=== PATIENT | male | born 1955 | race Caucasian/White ===

== ENCOUNTER 2019-09-13 12:40 | Emergency (ER) | payer MEDICARE, OTHER ==
--- NOTE | 2019-09-13 13:34 | EDM.PDOC ---
ED HPI GENERAL MEDICAL PROBLEM - General Chief Complaint: Respiratory Problem Stated Complaint: CHF Time Seen by Provider: 09/13/19 13:10 Source of Information: Reports: Patient History Limitations: Reports: No Limitations - History of Present Illness INITIAL COMMENTS - FREE TEXT/NARRATIVE: Patient is a 64 YO WM who presented to the ED because of left sided chest pain radiating to the left shoulder and left rib cage area. The pain is sharp 7/10 denies any dyspnea,nausea,vomiting, or diaphoresis. He has a h/o COPD and is on home oxygen ad inhalers. Left back/chest Pain Score (Numeric/FACES): 8 - Related Data Allergies Allergy/AdvReac Type Severity Reaction Status Date / Time No Known Allergies Allergy Verified 09/13/19 13:30 Home Meds: Home Meds Albuterol [Proventil HFA] 1 - 2 puff INH Q4H PRN 09/13/19 [History] Aspirin 81 mg PO DAILY 09/13/19 [History] Azithromycin [Zithromax] 250 mg PO DAILY #6 tab 09/13/19 [Rx] Carvedilol 6.25 mg PO BID 09/13/19 [History] Cinnamon Bark [Cinnamon] 500 mg PO DAILY 09/13/19 [History] Clobetasol [Clobetasol Propionate 0.05%] 1 applic TOP TID 09/13/19 [History] Clopidogrel [Plavix] 75 mg PO DAILY 09/13/19 [History] Folic Acid 1 mg PO DAILY 09/13/19 [History] Furosemide 40 mg PO DAILY 09/13/19 [History] Ibuprofen 400 mg PO Q4H PRN 09/13/19 [History] Lisinopril 5 mg PO DAILY 09/13/19 [History] Methotrexate Sodium/PF [Methotrexate 25 mg/ml Vial] 0.6 ml SQ WE 09/13/19 [ History] Multivitamin [Daily Multiple Vitamin] 1 tab PO DAILY 09/13/19 [History] Naproxen 250 mg PO ASDIRECTED PRN 09/13/19 [History] Sertraline [Zoloft] 100 mg PO DAILY 09/13/19 [History] Simvastatin [Zocor] 40 mg PO DAILY 09/13/19 [History] Umeclidinium Brm/Vilanterol Tr [Anoro Ellipta 62.5-25 MCG] 1 each IH DAILY 09/13 [History] amLODIPine [Norvasc] 5 mg PO DAILY 09/13/19 [History] oxyCODONE HCl/Acetaminophen [Oxycodone-Acetaminophen 5-325] 1 tab PO Q4H PRN 02/26 [History] predniSONE [Prednisone] 40 mg PO DAILY #10 tablet 09/13/19 [Rx] ED ROS GENERAL - Review of Systems Review Of Systems: See Below Constitutional: Reports: No Symptoms HEENT: Reports: No Symptoms Respiratory: Reports: Shortness of Breath, Pleuritic Chest Pain, Cough Cardiovascular: Reports: Chest Pain. Denies: Dyspnea on Exertion, Palpitations Endocrine: Reports: No Symptoms GI/Abdominal: Reports: No Symptoms, Abdominal Pain : Reports: No Symptoms Musculoskeletal: Reports: No Symptoms Skin: Reports: No Symptoms Neurological: Reports: No Symptoms Psychiatric: Reports: No Symptoms ED EXAM, GENERAL - Physical Exam Exam: See Below Exam Limited By: Combative/Threatening General Appearance: No Apparent Distress Ears: Normal External Exam, Normal Canal, Hearing Grossly Normal Nose: Normal Inspection, Normal Mucosa, No Blood Throat/Mouth: Normal Inspection, Normal Lips, Normal Teeth Head: Atraumatic, Normocephalic Neck: Normal Inspection, Supple, Non-Tender Respiratory/Chest: No Respiratory Distress, Lungs Clear, Normal Breath Sounds, No Accessory Muscle Use, Chest Non-Tender Cardiovascular: Normal Peripheral Pulses, Regular Rate, Rhythm, No Edema, No Gallop, No JVD, No Murmur, No Rub Extremities: Normal Inspection, Normal Range of Motion, Non-Tender Neurological: Oriented, CN II-XII Intact, Normal Cognition Psychiatric: Normal Affect, Normal Mood Skin Exam: Warm Course - Vital Signs Text/Narrative:: labs and EKG,CXR-reviewed with the patient EKG-NSR,bigeminy CXR-neg trop-0.076,0.078 bnp duoneb,prednisone 40 mg po x1,toradol 60 mg IM x1 with significant improvement of his breathing and pleuritic pain Last Recorded V/S: Last Vital Signs Temp 36.6 C 09/13/19 14:31 Pulse 67 09/13/19 14:31 Resp 20 09/13/19 14:31 BP 141/98 H 09/13/19 14:31 Pulse Ox 90 L 09/13/19 14:31 - Orders/Labs/Meds Orders: Active Orders 24 hr Category Date Time Status EKG Documentation Completion [RC] ASDIRECTED Care 09/13/19 13:03 Active RT Aerosol Therapy [RC] ASDIRECTED Care 09/13/19 13:48 Active EKG 12 Lead [EK] Routine Ther 09/13/19 13:02 Ordered Labs: Laboratory Tests 09/13/19 09/13/19 09/13/19 Range/Units 13:10 13:10 13:10 WBC 10.1 (4.5-12.0) X10-3/uL RBC 5.29 (4.30-5.75) x10(6)uL Hgb 16.4 (13.5-17.8) g/dL Hct 49.5 (30.0-51.3) % MCV 93.6 (80-96) fL MCH 31.1 (27.7-33.6) pg MCHC 33.2 (32.2-35.4) g/dL RDW 15.6 H (11.5-15.5) % Plt Count 174 (125-369) X10(3)uL MPV 8.0 (7.4-10.4) fL Neut % (Auto) 73.6 (46-82) % Lymph % (Auto) 13.3 (13-37) % [place] % (Auto) 8.2 (4-12) % Eos % (Auto) 1 (1.0-5.0) % Baso % (Auto) 4 H (0-2) % Neut # (Auto) 7.5 (1.6-8.3) # Lymph # (Auto) 1.3 (0.6-5.0) # [place] # (Auto) 0.8 (0.0-1.3) # Eos # (Auto) 0.1 (0.0-0.8) # Baso # (Auto) 0.4 H (0.0-0.2) # Sodium 139 (135-145) mmol/L Potassium 3.9 (3.5-5.3) mmol/L Chloride 104 (100-110) mmol/L Carbon Dioxide 26 (21-32) mmol/L BUN 10 (7-18) mg/dL Creatinine 0.8 (0.70-1.30) mg/dL Est Cr Clr Drug Dosing TNP Estimated GFR (MDRD) > 60 (>60) BUN/Creatinine Ratio 12.5 (9-20) Glucose 131 H (80-116) mg/dL Calcium 8.3 L (8.6-10.2) mg/dL Troponin I 0.076 H* (<0.017-0.056) ng/mL 09/13/19 Range/Units 15:20 WBC (4.5-12.0) X10-3/uL RBC (4.30-5.75) x10(6)uL Hgb (13.5-17.8) g/dL Hct (30.0-51.3) % MCV (80-96) fL MCH (27.7-33.6) pg MCHC (32.2-35.4) g/dL RDW (11.5-15.5) % Plt Count (125-369) X10(3)uL MPV (7.4-10.4) fL Neut % (Auto) (46-82) % Lymph % (Auto) (13-37) % [place] % (Auto) (4-12) % Eos % (Auto) (1.0-5.0) % Baso % (Auto) (0-2) % Neut # (Auto) (1.6-8.3) # Lymph # (Auto) (0.6-5.0) # [place] # (Auto) (0.0-1.3) # Eos # (Auto) (0.0-0.8) # Baso # (Auto) (0.0-0.2) # Sodium (135-145) mmol/L Potassium (3.5-5.3) mmol/L Chloride (100-110) mmol/L Carbon Dioxide (21-32) mmol/L BUN (7-18) mg/dL Creatinine (0.70-1.30) mg/dL Est Cr Clr Drug Dosing Estimated GFR (MDRD) (>60) BUN/Creatinine Ratio (9-20) Glucose (80-116) mg/dL Calcium (8.6-10.2) mg/dL Troponin I 0.078 H* (<0.017-0.056) ng/mL Meds: Medications Discontinued Medications Generic Name Dose Route Start Last Admin Trade Name Freq PRN Reason Stop Dose Admin Albuterol/Ipratropium 3 ml 09/13/19 13:48 09/13/19 13:54 Duoneb 3.0-0.5 Mg/3 Ml NEB 09/13/19 13:49 3 ml ONETIME ONE Administration Ketorolac Tromethamine 60 mg 09/13/19 13:46 09/13/19 13:54 Toradol IM 09/13/19 13:47 60 mg ONETIME ONE Administration Prednisone 40 mg 09/13/19 13:46 09/13/19 13:54 Prednisone PO 09/13/19 13:47 40 mg ONETIME ONE Administration Departure - Departure Time of Disposition: 02:20 Disposition: DC/Tfer W/I Hosp To [facility] 61 Condition: Good Clinical Impression: COPD exacerbation, Pleurisy - Discharge Information *PRESCRIPTION DRUG MONITORING PROGRAM REVIEWED*: No *COPY OF PRESCRIPTION DRUG MONITORING REPORT IN PATIENT KIMBERLY: No Prescriptions: Azithromycin [Zithromax] 250 mg PO DAILY #6 tab predniSONE [Prednisone] 40 mg PO DAILY #10 tablet Instructions: Chronic Obstructive Pulmonary Disease Exacerbation, Cough, Adult , [id number], Pleurisy, [id number] Referrals: PCP,None [Primary Care Provider] - Forms: ED Department Discharge Additional Instructions: please read discharge instructions on COPD and pleurisy Prednisone 40mg daily starting tomorrow Z-magdalene as directed Follow up if symptoms persist - My Orders Last 24 Hours: My Active Orders 09/13/19 13:02 EKG 12 Lead [EK] Routine 09/13/19 13:03 EKG Documentation Completion [RC] ASDIRECTED 09/13/19 13:48 RT Aerosol Therapy [RC] ASDIRECTED - Assessment/Plan Last 24 Hours: My Active Orders 09/13/19 13:02 EKG 12 Lead [EK] Routine 09/13/19 13:03 EKG Documentation Completion [RC] ASDIRECTED 09/13/19 13:48 RT Aerosol Therapy [RC] ASDIRECTED
[2019-09-13] MEDS ORDERED: Ketorolac 60 MG/2 ML SDV IM ONE (13:46)
[2019-09-13] MEDS ORDERED: predniSONE 20 MG Tab PO ONE (13:46)
[2019-09-13] MEDS ORDERED: Albuterol/Ipratropium 3.0-0.5 MG/3 ML Neb Soln NEB ONE (13:48)
--- NOTE | 2019-09-13 14:48 | CR ---
INDICATION: Chest pain. CHEST: An AP upright portable view of the chest, 09/13/19, was compared with and revealed the heart to be enlarged. The aorta is tortuous with calcification in the arch. The lungs appear to be hyperaerated with slightly flattened diaphragm leaf of questionable significance, possibly representing COPD. Heavy markings at the lung bases are similar to the previous study, emphasized by technique and relatively poor inspiration, making it difficult to exclude minimal patchy bronchopneumonia, although likely they are on the basis of mild pulmonary fibrosis. Evidence of exogenous obesity is also noted. A left arm PICC line placed on the previous examination has been removed. IMPRESSION: 1. No definite acute process. 2. ASHD with cardiomegaly. 3. Probable COPD. 4. Probable pulmonary fibrosis at the lung bases and lower lung earl, which makes it difficult to entirely exclude minimal patchy bronchopneumonia. MTDD
== END 2019-09-13 15:52 | disposition home or self-care (01) ==
LOC: FB.ED 12:40
DX: J44.1 Chronic obstructive pulmonary disease with (acute) exacerbation (principal); R09.1 Pleurisy; Z79.52 Long term (current) use of systemic steroids; Z79.82 Long term (current) use of aspirin; Z99.81 Dependence on supplemental oxygen
CPT/HCPCS: 36415; 71045; 80048; 84484; 85025; 93005; 93010; 94640; 96372; 99284; 99285; A9270; J1885; J7620-GY

== ENCOUNTER 2020-01-23 18:50 | Emergency (ER) | payer MEDICARE, BC ==
[2020-01-23] MEDS ORDERED: Albuterol/Ipratropium 3.0-0.5 MG/3 ML Neb Soln NEB ONE (18:59)
[2020-01-23] MEDS ORDERED: methylPREDNISolone Sodium Succinate 125 MG/2 ML SDV IVPUSH ONE (18:59)
--- NOTE | 2020-01-23 19:07 | PCM.SN ---
- Free Text/Narrative Note: pt arrived 8 min prior to change of shift. I evaluated pt, examined him and placed orders. present. c/o sob x 4d, no f/c/d has had flu vax on 4 l/min NC at home, says he has been getting into the 60s at home did have inc'd trop 09/28 when last here PE rales R base, not elsewhere, poor AE, no true wheeze, inc'd AP diameter, using accessory muscles, no purse lip, no retractions, talks 8 word sentences, minimal dyspnea ASSESS COPD exacerbation PLAN w/u initiated, tx and disposition as per Dr Estrada
[2020-01-23] MEDS ORDERED: hydrALAZINE 20 MG/ML SDV IVPUSH ONE (20:06)
[2020-01-23] MEDS ORDERED: Metolazone 5 MG Tab PO ONE (20:06)
[2020-01-23] MEDS ORDERED: Furosemide 40 MG/4 ML VIAL IVPUSH ONE (20:06)
[2020-01-23] MEDS ORDERED: Heparin Sodium 5,000 Units/ML Vial IVPUSH ONE (20:11)
[2020-01-23] MEDS ORDERED: Heparin Sodium/0.45% NaCl 500 ML IV SCH (20:15)
--- NOTE | 2020-01-23 20:18 | EDM.PDOC ---
ED HPI GENERAL MEDICAL PROBLEM - General Chief Complaint: Respiratory Problem Stated Complaint: dyspnea Time Seen by Provider: 01/23/20 19:20 Source of Information: Reports: Patient History Limitations: Reports: No Limitations - History of Present Illness INITIAL COMMENTS - FREE TEXT/NARRATIVE: Patient presented to the ED because of increasing dyspnea for the past 2 days. He denies any chest pain,nausea,vomiting,edema except that his abdomen is getting bigger. He also c/o cough which is productive but nothing more than usual. There is no associated fever or chills. He has a history of end stage COPD and is on neb treatment and home oxygen at 4L/min - Related Data Allergies Allergy/AdvReac Type Severity Reaction Status Date / Time No Known Allergies Allergy Verified 01/23/20 19:05 Home Meds: Home Meds Albuterol [Proventil HFA] 1 - 2 puff INH Q4H PRN 09/13/19 [History] Aspirin 81 mg PO DAILY 09/13/19 [History] Azithromycin [Zithromax] 250 mg PO DAILY #6 tab 09/13/19 [Rx] Cinnamon Bark [Cinnamon] 500 mg PO DAILY 09/13/19 [History] Clobetasol [Clobetasol Propionate 0.05%] 1 applic TOP TID 09/13/19 [History] Clopidogrel [Plavix] 75 mg PO DAILY 09/13/19 [History] Folic Acid 1 mg PO DAILY 09/13/19 [History] Furosemide 40 mg PO DAILY 09/13/19 [History] Ibuprofen 400 mg PO Q4H PRN 09/13/19 [History] Methotrexate Sodium/PF [Methotrexate 25 mg/ml Vial] 0.6 ml SQ WE 09/13/19 [ History] Multivitamin [Daily Multiple Vitamin] 1 tab PO DAILY 09/13/19 [History] Naproxen 250 mg PO ASDIRECTED PRN 09/13/19 [History] Sertraline [Zoloft] 100 mg PO DAILY 09/13/19 [History] Simvastatin [Zocor] 40 mg PO DAILY 09/13/19 [History] Umeclidinium Brm/Vilanterol Tr [Anoro Ellipta 62.5-25 MCG] 1 each IH DAILY 09/13 [History] amLODIPine [Norvasc] 5 mg PO DAILY 09/13/19 [History] carvediloL [Carvedilol] 6.25 mg PO BID 09/13/19 [History] lisinopriL [Lisinopril] 5 mg PO DAILY 09/13/19 [History] oxyCODONE HCl/Acetaminophen [Oxycodone-Acetaminophen 5-325] 1 tab PO Q4H PRN 02/26 [History] predniSONE [Prednisone] 40 mg PO DAILY #10 tablet 09/13/19 [Rx] Past Medical History HEENT History: Reports: Impaired Vision Cardiovascular History: Reports: Heart Failure, High Cholesterol, Hypertension Respiratory History: Reports: COPD Musculoskeletal History: Reports: Arthritis, Back Pain, Chronic Endocrine/Metabolic History: Reports: Obesity/BMI 30+ Dermatologic History: Reports: Psoriasis - Infectious Disease History Infectious Disease History: Reports: Chicken Pox Social & Family History - Family History Family Medical History: Noncontributory - Tobacco Use Smoking Status *Q: Former Smoker Years of Tobacco use: 40 Packs/Tins Daily: 3 Used Tobacco, but Quit: Yes Month/Year Tobacco Last Used: 03/2009 - Caffeine Use Caffeine Use: Reports: None - Recreational Drug Use Recreational Drug Use: No ED ROS GENERAL - Review of Systems Review Of Systems: See Below Constitutional: Reports: No Symptoms HEENT: Reports: No Symptoms Respiratory: Reports: Shortness of Breath, Cough, Sputum Cardiovascular: Reports: No Symptoms Endocrine: Reports: No Symptoms GI/Abdominal: Reports: No Symptoms : Reports: No Symptoms Musculoskeletal: Reports: No Symptoms Skin: Reports: No Symptoms Neurological: Reports: No Symptoms Psychiatric: Reports: No Symptoms ED EXAM, GENERAL - Physical Exam Exam: See Below Exam Limited By: No Limitations General Appearance: Alert, No Apparent Distress Ears: Normal External Exam, Normal Canal Nose: Normal Inspection, Normal Mucosa, No Blood Throat/Mouth: Normal Inspection, Normal Lips, Normal Teeth Head: Atraumatic, Normocephalic Neck: Normal Inspection, Supple, Non-Tender, Full Range of Motion Respiratory/Chest: No Respiratory Distress, Decreased Breath Sounds, Crackles, Wheezing Cardiovascular: Normal Peripheral Pulses, Regular Rate, Rhythm, No Edema, No JVD , No Murmur GI/Abdominal: Normal Bowel Sounds, Soft, Non-Tender, No Organomegaly, No Distention, Distended Back Exam: Normal Inspection, Full Range of Motion Extremities: Normal Inspection, Normal Range of Motion Course - Vital Signs Text/Narrative:: Labs/EKG was reviewed with patient and his sister and verbalized full understanding EKG-NSR Trop-140.6 CXR-pending duoneb x1 lasix 60 mg IV x1 zaroxolyn 5 mg po x1 hydralazine 20 mg IV heparin bolus 5000 U IV Heparin drip @ 1000U/hr Case discussed with Dr Ritchie who agreed with the above plan of care Code Status: Full code Last Recorded V/S: Last Vital Signs Temp Pulse 50 L 01/23/20 19:08 Resp 20 01/23/20 19:05 BP 126/66 01/23/20 19:05 Pulse Ox 90 L 01/23/20 19:08 - Orders/Labs/Meds Orders: Active Orders 24 hr Category Date Time Status BIPAP Adult [RT BiPAP/CPAP] [RC] ASDIRECTED Care 01/23/20 19:00 Active EKG Documentation Completion [RC] ASDIRECTED Care 01/23/20 18:58 Active RT Aerosol Therapy [RC] ASDIRECTED Care 01/23/20 19:00 Active Chest 2V [CR] Stat Exams 01/23/20 18:57 Ordered CULTURE BLOOD [BC] Urgent Lab 01/23/20 19:15 Received CULTURE BLOOD [BC] Urgent Lab 01/23/20 19:25 Received UA W/MICROSCOPIC [URIN] Stat Lab 01/23/20 19:01 Ordered Heparin 25,000 Units @ 20MLS/HR Med 01/23/20 20:15 Ordered Heparin Sodium/0.45% NaCl [Heparin 25,000 Units in 1/2 NS 500 ML] 500 ml IV ASDIRECTED Blood Culture x2 Reflex Set [OM.PC] Urgent Oth 01/23/20 19:01 Ordered Isolation [COMM] Routine Oth 01/23/20 19:00 Ordered EKG 12 Lead [EK] Routine Ther 01/23/20 18:57 Ordered Medication Orders Heparin Sodium/Sodium Chloride (Heparin 25,000 Units In 1/2 Ns 500 Ml) 500 mls @ 20 mls/hr IV ASDIRECTED [facility] Labs: Laboratory Tests 01/23/20 01/23/20 01/23/20 Range/Units 18:41 19:15 19:15 WBC 11.4 (4.5-12.0) X10-3/uL RBC 5.56 (4.30-5.75) x10(6)uL Hgb 17.2 (13.5-17.8) g/dL Hct 53.0 H (30.0-51.3) % MCV 95.4 (80-96) fL MCH 31.0 (27.7-33.6) pg MCHC 32.5 (32.2-35.4) g/dL RDW 16.8 H (11.5-15.5) % Plt Count 156 (125-369) X10(3)uL MPV 7.9 (7.4-10.4) fL Neut % (Auto) 76.6 (46-82) % Lymph % (Auto) 14.2 (13-37) % [place] % (Auto) 6.7 (4-12) % Eos % (Auto) 2 (1.0-5.0) % Baso % (Auto) 1 (0-2) % Neut # (Auto) 8.7 H (1.6-8.3) # Lymph # (Auto) 1.6 (0.6-5.0) # [place] # (Auto) 0.8 (0.0-1.3) # Eos # (Auto) 0.2 (0.0-0.8) # Baso # (Auto) 0.1 (0.0-0.2) # POC VBG pH 7.47 H (7.31-7.41) POC VBG pCO2 28.5 L (41-51) mmHG POC VBG HCO3 20.7 L (23-28) mmol/L POC VBG Total CO2 22 L (24-29) mmol/L POC VBG Base Excess -3 L (-2-3) mmol/L Sodium 139 (135-145) mmol/L Potassium 4.9 D (3.5-5.3) mmol/L Chloride 105 (100-110) mmol/L Carbon Dioxide 24 (21-32) mmol/L BUN 18 (7-18) mg/dL Creatinine 0.9 (0.70-1.30) mg/dL Est Cr Clr Drug Dosing 76.50 mL/min Estimated GFR (MDRD) > 60 (>60) BUN/Creatinine Ratio 20.0 (9-20) Glucose 129 H (80-116) mg/dL Lactic Acid (0.4-2.0) mmol/L Calcium 8.0 L (8.6-10.2) mg/dL Total Bilirubin 1.0 (0.1-1.3) mg/dL AST 17 (5-25) IU/L ALT 24 (12-36) U/L Alkaline Phosphatase 82 (56-112) IU/L Troponin I (4.0-60.3) pg/mL C-Reactive Protein (0.5-0.9) mg/dL NT-Pro-B Natriuret Pep (<=125) pg/mL Total Protein 6.7 (6.0-8.0) g/dL Albumin 3.2 (3.2-4.6) g/dL Globulin 3.5 g/dL Albumin/Globulin Ratio 0.9 01/23/20 01/23/20 Range/Units 19:15 19:15 WBC (4.5-12.0) X10-3/uL RBC (4.30-5.75) x10(6)uL Hgb (13.5-17.8) g/dL Hct (30.0-51.3) % MCV (80-96) fL MCH (27.7-33.6) pg MCHC (32.2-35.4) g/dL RDW (11.5-15.5) % Plt Count (125-369) X10(3)uL MPV (7.4-10.4) fL Neut % (Auto) (46-82) % Lymph % (Auto) (13-37) % [place] % (Auto) (4-12) % Eos % (Auto) (1.0-5.0) % Baso % (Auto) (0-2) % Neut # (Auto) (1.6-8.3) # Lymph # (Auto) (0.6-5.0) # [place] # (Auto) (0.0-1.3) # Eos # (Auto) (0.0-0.8) # Baso # (Auto) (0.0-0.2) # POC VBG pH (7.31-7.41) POC VBG pCO2 (41-51) mmHG POC VBG HCO3 (23-28) mmol/L POC VBG Total CO2 (24-29) mmol/L POC VBG Base Excess (-2-3) mmol/L Sodium (135-145) mmol/L Potassium (3.5-5.3) mmol/L Chloride (100-110) mmol/L Carbon Dioxide (21-32) mmol/L BUN (7-18) mg/dL Creatinine (0.70-1.30) mg/dL Est Cr Clr Drug Dosing mL/min Estimated GFR (MDRD) (>60) BUN/Creatinine Ratio (9-20) Glucose (80-116) mg/dL Lactic Acid 1.3 (0.4-2.0) mmol/L Calcium (8.6-10.2) mg/dL Total Bilirubin (0.1-1.3) mg/dL AST (5-25) IU/L ALT (12-36) U/L Alkaline Phosphatase (56-112) IU/L Troponin I 140.6 H* (4.0-60.3) pg/mL C-Reactive Protein 3.1 H* (0.5-0.9) mg/dL NT-Pro-B Natriuret Pep 3179 H* (<=125) pg/mL Total Protein (6.0-8.0) g/dL Albumin (3.2-4.6) g/dL Globulin g/dL Albumin/Globulin Ratio Meds: Medications Generic Name Dose Route Start Last Admin Trade Name Freq PRN Reason Stop Dose Admin Heparin Sodium/Sodium Chloride 500 mls @ 20 mls/hr 01/23/20 20:15 Heparin 25,000 Units In 1/2 Ns 500 Ml IV ASDIRECTED HAIDER Discontinued Medications Generic Name Dose Route Start Last Admin Trade Name Freq PRN Reason Stop Dose Admin Albuterol/Ipratropium 3 ml 01/23/20 18:59 01/23/20 19:08 Duoneb 3.0-0.5 Mg/3 Ml NEB 01/23/20 19:00 3 ml ONETIME ONE Administration Furosemide 60 mg 01/23/20 20:06 Lasix IVPUSH 01/23/20 20:07 NOW ONE Heparin Sodium (Porcine) 5,000 units 01/23/20 20:11 Heparin Sodium IVPUSH 01/23/20 20:12 ONETIME ONE Hydralazine HCl 20 mg 01/23/20 20:06 Apresoline IVPUSH 01/23/20 20:07 ONETIME ONE Methylprednisolone Sodium Succinate 125 mg 01/23/20 18:59 01/23/20 19:47 Solu-Medrol IVPUSH 01/23/20 19:00 125 mg ONETIME ONE Administration Metolazone 5 mg 01/23/20 20:06 Zaroxolyn PO 01/23/20 20:07 ONETIME ONE Departure - Departure Time of Disposition: 19:00 Disposition: DC/Tfer to Acute Hospital 02 Condition: Good Clinical Impression: Acute NH, CHF (congestive heart failure), COPD exacerbation - Discharge Information Referrals: PCP,Not In Area [Primary Care Provider] - Sepsis Event Note - Evaluation Sepsis Screening Result: No Definite Risk - Focused Exam Vital Signs: Vital Signs Pulse Resp BP Pulse Ox Pulse Ox 01/23/20 19:08 50 L 90 L 01/23/20 19:05 55 L 20 126/66 84 L Date Exam was Performed: 01/23/20 Time Exam was Performed: 20:13 - My Orders Last 24 Hours: My Active Orders 01/23/20 20:15 Heparin 25,000 Units @ 20MLS/HR Heparin Sodium/0.45% NaCl [Heparin 25,000 Units in 1/2 NS 500 ML] 500 ml IV ASDIRECTED - Assessment/Plan Last 24 Hours: My Active Orders 01/23/20 20:15 Heparin 25,000 Units @ 20MLS/HR Heparin Sodium/0.45% NaCl [Heparin 25,000 Units in 1/2 NS 500 ML] 500 ml IV ASDIRECTED
[2020-01-23] MEDS ORDERED: Metolazone 2.5 MG Tab ONE (20:22)
[2020-01-23] MEDS ORDERED: LORazepam 2 MG/ML SDV IVPUSH ONE (20:52)
[2020-01-23] MEDS ORDERED: Morphine 2 MG/ML Syringe IVPUSH ONE (20:52)
== END 2020-01-23 21:27 ==
LOC: FB.ED 18:50
DX: I11.0 Hypertensive heart disease with heart failure (principal); I50.9 Heart failure, unspecified; I21.9 Acute myocardial infarction, unspecified; J44.1 Chronic obstructive pulmonary disease with (acute) exacerbation; E78.00 Pure hypercholesterolemia, unspecified; M19.90 Unspecified osteoarthritis, unspecified site; E66.9 Obesity, unspecified; Z68.39 Body mass index [BMI] 39.0-39.9, adult; Z87.891 Personal history of nicotine dependence; Z79.82 Long term (current) use of aspirin; Z79.02 Long term (current) use of antithrombotics/antiplatelets; Z79.899 Other long term (current) drug therapy
CPT/HCPCS: 36415; 71045; 80053; 81001; 82803; 83605; 83880; 84484; 85025; 86140; 87040; 87804; 93005; 94640; 96365; 96375; 96376; 99285; A9270; J0360; J1644; J1940; J2060; J2270; J2930; J7620-GY